=== PATIENT | female | born 1975 | race Caucasian/White ===

== ENCOUNTER 2017-05-31 06:34 | Day surgery (SDC) | payer OTHER ==
[2017-05-23 11:38] VITALS: BMI 26.2
[2017-05-31] MEDS ORDERED: LACTATED RINGERS SOLUTION 1,000 ML IV SCH (08:15)
[2017-05-31] MEDS ORDERED: PROPOFOL 20 ML ONE (08:21)
[2017-05-31] MEDS ORDERED: ROCURONIUM BROMIDE 50 MG/5 ML VIAL ONE (08:21)
[2017-05-31] MEDS ORDERED: BUPIVACAINE HCL/PF 2.5 MG/ML - 30 ML VIAL IJ ONE (08:22)
[2017-05-31] MEDS ORDERED: LIDOCAINE HCL/PF 2% SDV 5ML VIAL ONE (08:22)
[2017-05-31] MEDS ORDERED: MIDAZOLAM HCL 2 MG/2 ML SINGLE DOSE VIAL ONE (08:22)
[2017-05-31] MEDS ORDERED: ONDANSETRON 4 MG/2 ML VIAL IVPUSH PRN (08:34)
[2017-05-31] MEDS ORDERED: PROMETHAZINE HCL 25 MG/1 ML VIAL IVPUSH PRN (08:35)
[2017-05-31] MEDS ORDERED: ceFAZolin SODIUM 1 GM VIAL ONE ×2 (09:30→09:45)
[2017-05-31] MEDS ORDERED: SODIUM CHLORIDE 0.9% P/F 10 ML VIAL IJ ONE (09:30)
[2017-05-31] MEDS ORDERED: ONDANSETRON 4 MG/2 ML VIAL ONE (09:31)
[2017-05-31] MEDS ORDERED: DEXAMETHASONE SOD PHOSPHATE 4 MG/1 ML VIAL ONE (09:31)
[2017-05-31] MEDS ORDERED: KETOROLAC TROMETHAMINE 30 MG/1 ML VIAL ONE (09:42)
[2017-05-31] MEDS ORDERED: GLYCOPYRROLATE 0.2 MG/1 ML VIAL ONE (09:54)
[2017-05-31] MEDS ORDERED: NEOSTIGMINE METHYLSULFATE 0.5 MG/ML - 10 ML MDV ONE (09:54)
--- NOTE | 2017-05-31 10:26 | OP ---
Operative Note - Note: Operative Date: 05/31/17 Pre-Operative Diagnosis: Ventral hernia Operation: open ventral hernia repair with mesh Implants: hernia mesh Post-Operative Diagnosis: Same as Pre-op Surgeon: Eva Russo Patient Advocate: Klarissa Baltazar Anesthesia: General Specimens Removed: ventral hernia sac Estimated Blood Loss (mls): 5 Operative Report Dictated: Yes
[2017-05-31 14:02] VITALS: TEMP 98.5
[2017-05-31 14:12] VITALS: BP 104/55; PULSE 65
--- NOTE | 2017-05-31 15:12 | OP ---
DATE OF OPERATION: 05/31/2017 PREOPERATIVE DIAGNOSIS: Large ventral hernia. POSTOPERATIVE DIAGNOSIS: Large ventral hernia. OPERATIVE PROCEDURE: Open repair of ventral hernia with composite mesh. SURGEON: Eva Russo MD MECHANIC FIELD SERVICE: Klarissa ANESTHESIA: General endotracheal intubation. INDICATION FOR PROCEDURE: Patient had a done in the past, and since then, has developed a large ventral hernia at the umbilical and umbilical level, and the patient also has a very poor abdominal wall muscle , like jelly, but there was a distinct hernia seen in the midline. DESCRIPTION OF PROCEDURE: Patient was brought to the operating room. Abdomen was prepped and draped. Intravenous antibiotic was given. Midline incision was made just below the umbilicus, and the hernia sac was identified and dissected. There was about 5-6 cm diameter defect was identified, and once the hernia sac was removed, the composite mesh was used with [place] and Dexon. The Dexon part was sutured to the fascia on 2 sides where the 2 tabs were, and the rest of it was fixed with absorbable tab between the [place] and the Dexon to the fascia. About 6 tabs were used to fix it to the abdominal wall. Once it was done, the fascia was closed with 0 Vicryl and skin with subcuticular and patient went to the recovery room. EVA RUSSO M.D. [id number] cc: Nehemiah Maldonado MD
--- NOTE | 2017-06-03 15:25 | PATH ---
Surgical Pathology Report Patient Name: ANTONETTE MENSAH [facility]. Rec. #: [id number] /Age/Gender: 1975 (Age: 42) / F Account: [id number] Location: [facility] Taken: 05/31/2017 Received: 05/31/2017 Reported: 06/03/2017 Physicians: Eva Russo M.D. Specimen(s) Received VENTRAL HERNIA SAC Clinical History Ventral hernia Final Diagnosis VENTRAL HERNIA SAC, REPAIR: HERNIA SAC. Electronically Signed Jane Gurrola M.D. Gross Description Received in formalin labeled "ventral hernia sac," is a 5.7 x 2.7 x 1.0 cm portion of barnard-cruz fibromembranous tissue with attached fat, consistent with a hernia sac. Care Transition Coordinator sections are submitted in one cassette. 06/01/2017 [facility]06/01/2017
== END 2017-05-31 13:25 | disposition home or self-care (01) ==
LOC: FASU 06:34
PROVIDERS: ATTEND Surgery Vascular Surgery
PROC: 0WUF0JZ Supplement Abdominal Wall with Synthetic Substitute, Open Approach (ICD-10-PCS; principal; 2017-05-31 09:37)
DX: K43.9 Ventral hernia without obstruction or gangrene (principal)
CPT/HCPCS: 84703; 88302-TC; 94760